=== PATIENT | female | born 1990 | race Caucasian/White ===

== ENCOUNTER 2019-01-28 02:12 | Outpatient (CLI) | payer SELFPAY ==
[2019-01-28 16:52] LABS: #Basophils 0.1 thou/uL (0.0-0.2); #Eosinphils 0.2 thou/uL (0.0-0.7); #Lymphocytes 3.9 thou/uL (1.20-3.40); #Monocytes 0.5 thou/uL (0.11-0.59); #Neutrophils 4.7 thou/uL (1.40-6.50); %Basophils 0.6 % (0.0-1.0); %Eosinophils 1.7 % (0.0-10.0); %Lymphocytes 41.5 % (21.0-51.0); %Monocytes 5.9 % (0.0-10.0); %Neutrophils 50.3 % (42.0-75.0); Hemoglobin 14.7 g/dL (12.0-16.0); Mean Corpuscular HGB CONC 34.2 g/dL (32.0-36.0); Mean Corpuscular Hemoglobin 31.2 pg (27.0-31.0); Mean Corpuscular Volume 91.3 fL (78.0-98.0); Mean Platelet Volume 8.5 fL (7.4-10.4); Platelet Count 247 thou/uL (130-400); RBC Distribution Width 11.6 % (11.5-14.5); Red Blood Cell (RBC) Count 4.73 mill/uL (4.20-5.40); White Blood Cell (WBC) Count 9.3 thou/uL (4.8-10.8)
--- NOTE | 2019-01-28 16:53 | RAD ---
TWO VIEW CHEST: INDICATIONS: Preoperative evaluation. FINDINGS: The lungs are clear. The cardiac silhouette is normal in size. No effusion. IMPRESSION: No focal consolidation. POS: [facility]
[2019-01-28 16:58] LABS: Hemoglobin A1c 5.1 % (4.0-6.0)
[2019-01-28 16:59] LABS: BHCG - Serum Negative (NEGATIVE); Pregs Control Background? CLEAR/WHITE (CLR/WHITE); Pregs Control Bar Appear? YES (CONTROL BAR)
[2019-01-28 17:16] LABS: ALT (SGPT) 55 U/L (8-55); AST (SGOT) 34 U/L (5-34); Albumin 4.2 g/dL (3.5-5.0); Alkaline Phosphatase 59 U/L (40-150); Anion Gap 15 mmol/L (10-20); BUN (Urea Nitrogen) 13 mg/dL (7.0-18.7); Bilirubin, Direct 0.2 mg/dL (0.1-0.3); Bilirubin, Total 0.5 mg/dL (0.2-1.2); Calc. Creatinine Clearance 0 mL/min (70-130); Calcium 10.3 mg/dL (7.8-10.44); Carbon Dioxide 20 mmol/L (22-29); Chloride 105 mmol/L (98-107); Estimated GFR-MDRD 76; Glucose 76 mg/dL (70-105); Potassium 4.2 mmol/L (3.5-5.1); Protein, Total 7.2 g/dL (6.0-8.3); Sodium 136 mmol/L (136-145)
--- NOTE | 2019-01-29 13:15 | EKG ---
Test Reason : Blood Pressure : / mmHG Vent. Rate : 075 BPM Atrial Rate : 075 BPM P-R Int : 136 ms QRS Dur : 080 ms QT Int : 382 ms P-R-T Axes : 017 051 011 degrees QTc Int : 426 ms Normal sinus rhythm with sinus arrhythmia Normal ECG No previous ECGs available Confirmed by AURELIA MARADIAGA, DR. Garcia ([id number]) on 01/29/2019 1:14:46 PM Referred By: LUIS A Confirmed By:DR. Jose MOSES MD
== END 2019-01-28 02:13 | disposition home or self-care (01) ==
LOC: LABBT 02:12
PROVIDERS: ATTEND Surgery
DX: Z01.818 Encounter for other preprocedural examination (principal); E66.01 Morbid (severe) obesity due to excess calories
CPT/HCPCS: 71046; 80053; 80076; 83036; 84703; 85025; 93005; 93010

== ENCOUNTER 2019-01-28 15:15 | Inpatient (IN) | payer OTHER ==
[2019-01-28 15:26] VITALS: BMI 42.1
[2019-02-04] MEDS ORDERED: Heparin 5,000 UNITS/ML VIAL ONE (10:51)
[2019-02-04] MEDS ORDERED: Midazolam HCl 2 mg/2 ml Vial ONE ×2 (11:58→12:05)
[2019-02-04] MEDS ORDERED: Fentanyl 250 MCG/5 ML VIAL ONE (12:05)
[2019-02-04] MEDS ORDERED: Bupivacaine/Epinephrine 0.25% 30 ML VIAL ONE ×2 (12:07→12:39)
[2019-02-04] MEDS ORDERED: Ondansetron HCl/PF 4 MG/2 ML Vial IVP PRN (13:34)
[2019-02-04] MEDS ORDERED: Promethazine HCl 25 MG/ML VIAL IM PRN ×3 (13:34→16:04)
[2019-02-04] MEDS ORDERED: Promethazine HCl 25 MG/ML VIAL SLOW IVP PRN (13:34)
[2019-02-04] MEDS ORDERED: HYDROmorphone 2 MG/ML VIAL SLOW IVP PRN (13:34)
[2019-02-04] MEDS ORDERED: Meperidine HCl/PF 25 MG/ML VIAL ONE (14:05)
[2019-02-04] MEDS ORDERED: Fentanyl 100 MCG/2 ML VIAL ONE ×2 (14:12→14:51)
[2019-02-04] MEDS ORDERED: Meperidine HCl/PF 25 MG/ML VIAL SLOW IVP SCH (14:15)
[2019-02-04] MEDS ORDERED: Zolpidem Tartrate 5 MG TAB PO PRN (14:36)
[2019-02-04] MEDS ORDERED: Naloxone HCl 0.4 mg/ml Vial IV PRN (14:36)
[2019-02-04] MEDS ORDERED: diphenhydrAMINE 50 MG/ML VIAL IM PRN (14:36)
[2019-02-04] MEDS ORDERED: fentaNYL Citrate/PF 2,000 MCG in Sodium Chloride 0.9% 60 ML IV PRN (14:36)
[2019-02-04] MEDS ORDERED: diphenhydrAMINE 50 MG/ML VIAL IVP PRN ×2 (14:36→16:04)
[2019-02-04] MEDS ORDERED: diphenhydrAMINE 25 MG CAP PO PRN (14:36)
[2019-02-04] MEDS ORDERED: Communication Order-Pharmacy FS SCH (14:45)
[2019-02-04] MEDS ORDERED: Promethazine HCl 25 MG/ML VIAL ONE (14:51)
[2019-02-04] MEDS ORDERED: Hydrocodone-Acetamin 15 ML UDCUP PO PRN (16:04)
[2019-02-04] MEDS ORDERED: Dextrose 5% in Water 1,000 ML IV PRN (16:04)
[2019-02-04] MEDS ORDERED: Ondansetron PF 4 MG/2 ML Vial IVP PRN (16:04)
[2019-02-04] MEDS ORDERED: Dextrose 50% Abboject 50 ML SYRINGE SLOW IVP PRN (16:04)
[2019-02-04] MEDS ORDERED: hydrALAZINE 20 MG/ML VIAL SLOW IVP PRN (16:04)
[2019-02-04] MEDS: Ondansetron PF 4 MG/2 ML Vial IVP PRN ×2 (17:03→23:49)
[2019-02-04] MEDS: Acetaminophen 1,000 MG in Premix Bag 1 BAG IVPB SCH ×2 (17:03→23:19)
[2019-02-04] MEDS: D5 1/2 NS w/20 mEq KCL 1,000 ML IV SCH (17:03)
--- NOTE | 2019-02-04 17:16 | OP ---
DATE OF PROCEDURE: 02/04/2019 PREOPERATIVE DIAGNOSIS: Morbid obesity with a body mass index of 42. POSTOPERATIVE DIAGNOSIS: Morbid obesity with a body mass index of 42. PROCEDURES PERFORMED: 1. Laparoscopic sleeve gastrectomy with [place] staple line reinforcements and 38-[place] bougie. 2. Esophagogastroduodenoscopy. ANESTHESIA: General. ESTIMATED BLOOD LOSS: Minimal. COMPLICATIONS: None. SPECIMEN: Stomach. FINDINGS: Normal postoperative EGD. DESCRIPTION OF PROCEDURE: The patient was taken to the operating room and laid supine on the operating room table. After general anesthetic was obtained, arms and legs were double strapped to bariatric table. OG tube was used to decompress the stomach. Left subcostal 5-mm Optiview trocar was placed in the usual fashion. High-flow pneumoperitoneum was obtained. Left and right abdominal 12-mm ports as well as right subcostal 5-mm port were all placed under direct visualization. A 5-mm incision made at the xiphoid, and Germán was used to raise the liver off the GE junction. Short gastrics were taken down from mid body of stomach to left sukhwinder of diaphragm. Left sukhwinder, posterior fundus, and angle of His were completely dissected. Short gastrics were taken down to a distance of 5 cm proximal to the pylorus. Multiple loads of the Foley stapling device were used to perform the sleeve. A 38-bougie was brought in with its tip left in the antrum of the stomach. The first load was fired at a distance of 6 cm proximal to the pylorus, angled up towards the incisura. Multiple loads were then fired up along stapler and stomach was completely transected at the angle of His. Stomach was removed from the left abdominal incision. This fascial defect was closed using GraNee needle and 0 Vicryl tie. All port sites were infiltrated using local anesthetic. EGD scope was passed through esophagus, stomach to the level of duodenum without obstruction. There was no stricture at the incisura. There was no leakage of air or bleeding along the staple line. EGD scope was used to decompress stomach. It was pulled and removed. All ports were removed under camera visualization. Pneumoperitoneum was let down. Vicryl was used to close the fascial defect from the left abdominal incision. All incisions were closed using 4-0 Monocryl and Dermabond. The patient was sent to Recovery in stable condition. All instrument counts, needle counts, and lap counts were correct. Job ID: [id number]
[2019-02-04] MEDS ORDERED: NORETHINDRONE AC ETH ESTRADIOL PO SCH (21:00)
[2019-02-04] MEDS ORDERED: Enoxaparin Sodium 40 MG/0.4 ML SYRINGE SC SCH (21:00)
[2019-02-05] MEDS: D5 1/2 NS w/20 mEq KCL 1,000 ML IV SCH ×2 (02:00→10:11)
[2019-02-05 05:38] LABS: #Lymphocytes 1.6 thou/uL (1.20-3.40); #Monocytes 0.6 thou/uL (0.11-0.59); #Neutrophils 8.6 thou/uL (1.40-6.50); %Basophils 0.2 % (0.0-1.0); %Eosinophils 0.2 % (0.0-10.0); %Lymphocytes 14.8 % (21.0-51.0); %Monocytes 5.6 % (0.0-10.0); %Neutrophils 79.1 % (42.0-75.0); Mean Corpuscular HGB CONC 33.2 g/dL (32.0-36.0); Mean Corpuscular Hemoglobin 30.9 pg (27.0-31.0); Mean Platelet Volume 8.8 fL (7.4-10.4); Platelet Count 220 thou/uL (130-400); RBC Distribution Width 11.7 % (11.5-14.5); Red Blood Cell (RBC) Count 4.21 mill/uL (4.20-5.40); White Blood Cell (WBC) Count 10.9 thou/uL (4.8-10.8)
[2019-02-05 05:47] LABS: Anion Gap 9 mmol/L (10-20); BUN (Urea Nitrogen) 6 mg/dL (7.0-18.7); Calc. Creatinine Clearance 171 mL/min (70-130); Calcium 8.7 mg/dL (7.8-10.44); Carbon Dioxide 26 mmol/L (22-29); Chloride 107 mmol/L (98-107); Estimated GFR-MDRD 82; Glucose 148 mg/dL (70-105); Potassium 4.6 mmol/L (3.5-5.1); Sodium 137 mmol/L (136-145)
[2019-02-05] MEDS: Acetaminophen 1,000 MG in Premix Bag 1 BAG IVPB SCH (06:13)
--- NOTE | 2019-02-05 07:08 | PDOC.GSPN ---
Surgery Progress Note: Subj - Subjective Patient reports: tolerating liquids well, voiding w/o difficulty, nausea, still having pain (some upper abdominal pain) Surgery Progress Note: Obj - Vital signs Vital signs: Vital Signs - Most Recent Temp Pulse Resp BP Pulse Ox 98.1 F 55 L 18 129/88 94 L 02/05/19 03:59 02/05/19 03:59 02/05/19 03:59 02/05/19 03:59 02/05/19 03:59 - Physical Exam General: no distress Cardiovascular: regular rate and rhythm Respiratory: clear to auscultation Abdomen: soft, positive bowel sounds Surgery Progress Note: Results - Labs Result Diagrams: 02/05/19 05:01 02/05/19 05:01 Lab results: Laboratory Results - last 24 hr 02/05/19 02/05/19 05:01 05:01 WBC 10.9 H RBC 4.21 Hgb 13.0 Hct 39.1 MCV 93.0 MCH 30.9 MCHC 33.2 RDW 11.7 Plt Count 220 MPV 8.8 Neutrophils % 79.1 H Lymphocytes % 14.8 L Monocytes % 5.6 Eosinophils % 0.2 Basophils % 0.2 Neutrophils # 8.6 H Lymphocytes # 1.6 Monocytes # 0.6 H Eosinophils # 0.0 Basophils # 0.0 Sodium 137 Potassium 4.6 Chloride 107 Carbon Dioxide 26 Anion Gap 9 L BUN 6 L Creatinine 0.82 Estimated GFR (MDRD) 82 Glucose 148 H Calcium 8.7
[2019-02-05] MEDS ORDERED: Pantoprazole 40 MG VIAL IVP SCH (09:00)
[2019-02-05] MEDS ORDERED: Hydrocodone-Acetamin 15 ML UDCUP PO PRN (09:37)
[2019-02-05] MEDS: Ondansetron PF 4 MG/2 ML Vial IVP PRN (10:46)
[2019-02-05 11:19] VITALS: BP 121/85; TEMP 97.9
--- NOTE | 2019-02-05 22:41 | DIS ---
DATE OF ADMISSION: 02/04/2019 DATE OF DISCHARGE: 02/05/2019 ADMITTING DIAGNOSIS: Morbid obesity. DISCHARGE DIAGNOSIS: Morbid obesity. PROCEDURE PERFORMED: Laparoscopic sleeve gastrectomy by Dr. Guevara without complication. CONDITION ON DISCHARGE: Improved. STAFF: Dr. Guevara. HOSPITAL COURSE: On postop day 1, the patient is tolerating liquids. She is ambulatory. Her pain is controlled. She has been discharged home on Lortab elixir, Protonix, and [facility] She will follow up with me in 2 weeks. Job ID: [id number]
== END 2019-02-05 11:10 | disposition home or self-care (01) | DRG 621 ==
LOC: SURG A 02-04 09:47 → EDSTATUS 02-04 15:15 → SURG A 02-04 15:58
PROVIDERS: ADMIT Surgery; ATTEND Surgery
PROC: 0DB64Z3 Excision of Stomach, Percutaneous Endoscopic Approach, Vertical (ICD-10-PCS; principal; 2019-02-04)
PROC: 0DJ08ZZ Inspection of Upper Intestinal Tract, Via Natural or Artificial Opening Endoscopic (ICD-10-PCS; 2019-02-04)
DX: E66.01 Morbid (severe) obesity due to excess calories (principal); F32.9 Major depressive disorder, single episode, unspecified; Z68.41 Body mass index [BMI] 40.0-44.9, adult
CPT/HCPCS: 36415; 80048; 85025; 88307; 88312; 94760; C9113; J0131; J0690; J1644; J1650; J2175; J2250; J2405; J2550; J3010; J3490

== ENCOUNTER 2023-05-01 20:57 | Emergency (ER) | payer OTHER ==
[2023-05-01] MEDS ORDERED: HYDROcodone/Acetaminophen 10/325 mg Tablet ONE (22:26)
== END 2023-05-01 23:00 | disposition home or self-care (01) ==
LOC: ERS 20:57
DX: O99.611 Diseases of the digestive system complicating pregnancy, first trimester (principal); Z3A.10 10 weeks gestation of pregnancy
CPT/HCPCS: 99282

== ENCOUNTER 2024-05-30 21:29 | Emergency (ER) | payer OTHER ==
[2024-05-30] MEDS ORDERED: Ibuprofen 800 MG TAB ONE (23:56)
[2024-05-30] MEDS ORDERED: Cyclobenzaprine 10 MG TAB ONE (23:56)
== END 2024-05-31 00:40 | disposition home or self-care (01) ==
LOC: ERS 21:29
DX: S50.02XA Contusion of left elbow, initial encounter (principal); V43.62XA Car passenger injured in collision with other type car in traffic accident, initial encounter
CPT/HCPCS: 99283